=== PATIENT | male | born 1980 | race Hispanic/Latino ===

== ENCOUNTER 2018-02-25 08:25 | Emergency (ER) | payer OTHER ==
[~2018-02-25] VITALS: Ht 180.3 cm; Wt 107.5 kg
--- OUTSIDE RECORDS SUMMARY | 2018-02-25 08:28 | XMS REPORT | Clinical Summary ---
Author Author [facility] Address Unknown Phone Unavailable Care Team Providers Care Life Skills Specialist Name Role Phone Irvin Richards MD PCP Allergies Active Allergy Reactions Severity Noted Date Comments Valacyclovir 06/11/2016 Current Medications Prescription Sig. Disp. Refills Start End Date Status Date atorvastatin (LIPITOR) 20 06/04/20 Active MG tablet 16 lisinopril 06/04/20 Active (PRINIVIL,ZESTRIL) 20 MG 16 tablet Active Problems Not on file Family History Medical History Relation Name Comments No Known Problems Father No Known Problems Mother Relation Name Status Comments Father Alive Mother Alive Social History Tobacco Use Types Packs/Day Years Used Date Current Some Day Smoker Smokeless Tobacco: Never Used Tobacco Cessation: Ready to Quit: Yes; Counseling Given: Yes Alcohol Use Drinks/Week oz/Week Comments Yes occasional Sex Assigned at Date Recorded Not on file Last Filed Vital Signs Not on file Plan of Treatment Health Maintenance Due Date Last Done Comments INFLUENZA VACCINE 05/21/2018 Results Not on fileafter 02/24/2017 Insurance Payer Benefit Subscriber ID Type Phone Address Plan / Group HUMANA HUMANA xxxxxxxxx HMO HMO/POS/EP O/OPEN ACCESS
[2018-02-25] MEDS ORDERED: PROPARACAINE HCL 0.5% OP SOLN 15 ML BTL OP ONE (08:45)
[2018-02-25] MEDS ORDERED: HYDROCODONE/APAP 5MG-325MG TAB PO ONE (08:45)
[2018-02-25] MEDS ORDERED: CLONIDINE HCL 0.1 MG TAB PO ONE (08:45)
[2018-02-25] MEDS ORDERED: ERYTHROMYCIN (OPTH) 3.5 GM OINT OP SCH (09:00)
[2018-02-25] MEDS ORDERED: LABETALOL HCL 5 MG/ML 20ML VIAL IV STA (10:05)
[2018-02-25 10:54] VITALS: BP 173/99
== END 2018-02-25 11:08 | disposition home or self-care (01) ==
LOC: FSED 08:25
DX: H57.12 Ocular pain, left eye (principal); H10.022 Other mucopurulent conjunctivitis, left eye; Z87.891 Personal history of nicotine dependence
CPT/HCPCS: 99283; J3490

== ENCOUNTER 2020-07-07 17:11 | Emergency (ER) | payer OTHER ==
[~2020-07-07] VITALS: Ht 180.3 cm; Wt 107.5 kg
[2020-07-07] MEDS ORDERED: CLONIDINE HCL 0.2 MG TAB PO ONE (17:30)
--- NOTE | 2020-07-07 18:18 | NUR ---
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
[2020-07-07] MEDS ORDERED: CLONIDINE HCL 0.1 MG TAB ONE (18:26)
--- NOTE | 2020-07-07 18:59 | Emergency Department Note ---
History of Present Illnes History of Present Illness Chief Complaint: General Medicine Complaints History of Present Illness This is a 39 year old male Chief Complaint Comment ruq abd pain only hurts when he sits down. non radiating. no sob, denies cp, no n/v/d/f. pt states intermittant for months. pt states "it's my gallbladder. " pt denies any current medical hx. pt states he was once told he had htn, but states it went away. pt quit smoking 14 months ago. pt aaox4. ambulatory. bilateral bp: left arm 199/115 right arm 179/99 md to room for eval. . Historian: Patient Arrival Mode: Car Onset (how long ago): day(s) (5) Location: RUQ PAIN Quality: DULL Radiation: Denies non-radiation, Denies back, Denies neck, Denies extremity, Denies abdomen, Denies periumbilical, Denies flank, Denies proximal, Denies d istal, Denies other Severity: moderate Onset quality: gradual Duration (how long): day(s) (5) Timing of current episode: intermittent Progression: waxing and waning Context: Denies recent illness, Denies recent surgery, Denies recent immobilization, Denies recent travel, Denies trauma/injury, Denies new medications, Denies hx of DVT/PE, Denies non-compliance w/ medications, Denies other Relieving factors: none Exacerbating factors: none Associated symptoms: Denies denies other symptoms, Denies confusion, Denies chest pain, Denies cough, Denies diaphoresis, Denies fever/chills, Denies headaches, Denies loss of appetite, Denies malaise, Denies nausea/vomiting, Denies rash, Denies seizure, Denies shortness of breath, Denies syncope, Denies weakness, Denies other Treatments prior to arrival: none Past Medical/Family History Physician Review I have reviewed the patient's past medical and family history. Any updates have been documented here. Past Medical History Recent Fever: No Clinical Suspicion of Infectio: No New/Unexplained Change in Ment: No Past Medical History: Hypertension, Anxiety Other Medical History: quit smoking 2019 shingles Past Surgical History: None Social History Smoking Cessation: Former smoker Counseling Performed: No Alcohol Use: None Any Illegal Drug Use: No Physically hurt or threatened: No Other Last Tetanus: UTD Any Pre-Existing Lines (PICC,: No Review of Systems Review of Systems Constitutional: Reports no symptoms EENTM: Reports no symptoms Cardiovascular: Reports no symptoms Respiratory: Reports no symptoms Gastrointestinal: Reports as per HPI Genitourinary: Reports no symptoms Musculoskeletal: Reports no symptoms Integumentary: Reports no symptoms Neurological: Reports no symptoms Psychological: Reports no symptoms Endocrine: Reports no symptoms Hematological/Lymphatic: Reports no symptoms Physical Exam Related Data Allergies: Coded Allergies: valacyclovir (Verified Allergy, Unknown, 02/25/18) Triage Vital Signs Vital Signs Date Time Temp Pulse Resp B/P (MAP) Pulse Ox O2 Delivery O2 Flow Rate FiO2 07/07/20 17:11 99.2 95 16 179/99 98 Room Air Vital signs reviewed: Yes Physical Exam CONSTITUTIONAL Constitutional: Present well-developed, Present well-nourished HENT HENT: Present normocephalic, Present atraumatic, Present oropharynx clear/moist, Present nose normal HENT L/R: Present left ext ear normal, Present right ext ear normal EYES Eyes: Reports PERRL, Reports conjunctivae normal NECK Neck: Present ROM normal PULMONARY Pulmonary: Present effort normal, Present breath sounds normal CARDIOVASCULAR Cardiovascular: Present regular rhythm, Present heart sounds normal, Present capillary refill normal, Present normal rate GASTROINTESTINAL Abdominal: Present soft, Present bowel sounds normal, Present tender (RIGHT UPPER QUADRENT) GENITOURINARY Genitourinary: Present exam deferred SKIN Skin: Present warm, Present dry MUSCULOSKELETAL Musculoskeletal: Present ROM normal NEUROLOGICAL Neurological: Present alert, Present oriented x 3, Present no gross motor or sensory deficits PSYCHOLOGICAL Psychological: Present mood/affect normal, Present judgement normal Results Laboratory Lab results reviewed: Yes Imaging Imaging results reviewed: Yes Procedures 12 Lead ECG Interpretation ECG Interpretation : ECG: ECG 1 Date: Jul 07, 2020 Time: 17:18 Rhythm: sinus rhythm Rate: normal BPM: 78 QRS axis: normal ST segments normal: Yes T waves normal: Yes Clinical Impression: abnormal ECG Assessment & Plan Medical Decision Making MDM GALL STONES PUD Reassessment Reassessment BETTER Assessment & Plan Final Impression: (1) Hypertensive urgency (2) Abdominal pain, right upper quadrant Depart Disposition: HOME, SELF-CARE Last Vital Signs Date Time Temp Pulse Resp B/P (MAP) Pulse Ox O2 Delivery O2 Flow Rate FiO2 07/07/20 18:21 190/109 07/07/20 17:11 99.2 95 16 98 Room Air Medications in the ED Clonidine HCl 0.2 mg ONCE ONCE PO Last administered on 07/07/20at 18:21; Admin Dose 0.2 MG; Start 07/07/20 at 17:30; Stop 07/07/20 at 17:59; Status DC Clonidine HCl 0.2 mg STK-MED ONCE .ROUTE ; Start 07/07/20 at 18:26; Stop 07/07/20 at 18:22; Status DC SHARATH MYERS MD Jul 07, 2020 18:59
--- NOTE | 2020-07-07 18:59 | Diagnostic Imaging Report ---
EXAM: Right Upper Quadrant Ultrasound INDICATION: ^pain COMPARISON: None. TECHNIQUE: Transverse and longitudinal images of the right upper abdomen were obtained. FINDINGS: Liver: Size: 20 cm in the right midclavicular line, normal Appearance: Increased echogenicity, smooth contour Mass: No focal masses Gallbladder: Stones/Sludge: None Wall: 0.2 cm Appearance: No wall thickening, pericholecystic fluid or hydrops. Sonographic Mancilla's Sign: Negative Bile Ducts: Intrahepatic Ducts: No dilatation Extrahepatic Ducts: Common bile duct measures 0.4 cm, no dilatation Pancreas: Visualized portions of the pancreatic neck and proximal body are normal. Kidneys: Length: Right 11.5 cm Echogenicity: Normal Collecting System: No hydronephrosis Stone: None Cyst/Mass: None Vessels: Aorta: Visualized portions are normal Inferior Vena Cava: Visualized portions are normal Main Portal Vein: 1.0 cm, normal size with hepatopetal flow. Free Fluid: No ascites or pleural effusion IMPRESSION: 1. Hepatomegaly with diffuse fatty infiltration. No focal lesions. 2. No gallstones or sludge. Signed by: Dr. Clay Jacob M.D. on 07/07/2020 6:56 PM
[2020-07-07] MEDS ORDERED: PEPCID20 MG PO (19:00)
[2020-07-07] MEDS ORDERED: LISINOPRIL10 MG PO (19:00)
[2020-07-07] MEDS ORDERED: CYCLOBENZAPRINE5 MG PO (19:03)
--- OUTSIDE RECORDS SUMMARY | 2020-07-08 10:32 | XMS REPORT | Continuity of Care Document ---
Author Author [facility] t Organization [facility] Address [address] [place] [address] [place] [id number] Phone Unavailable Care Team Providers Care Hospital Coordinator Name Role Phone MD JERE (HANNAH) Erica PCP SHARATH MYERS Unavailable Payers Payer Name Policy Type Policy Number Effective Date Expiration Date Marquita Corrales Ppo [id number] 2019 00:00:00 [facility] Problems Condition Name Condition Details Condition Category Status Onset Date Resolution Date Last Treatment Date Treating Clinician Comments Source Hypertensive urgency Problem Active [facility] Right upper quadrant abdominal pain Problem Active [facility] Allergies, Adverse Reactions, Alerts Allergy Name Allergy Type Status Severity Reaction(s) Onset Date Inacti ve Date Treating Clinician Comments Source Valacyclovir Allergy to substance Active 2018-02-25 00:00:0 0 [facility] Social History Social Habit Start Date Stop Date Quantity Comments Source Sex Assigned At 1980 00:00:00 1980 00:00:00 Male [facility] Medications Ordered Medication Name Filled Medication Name Start Date Stop Da te Current Medication? Ordering Clinician Indication Dosage Frequency Signature (SIG) Comments Components Source Cyclobenzaprine Hcl (Flexeril) 5 Mg TABLET Cyclobenzap rine Hcl (Flexeril) 5 Mg TABLET 2020-07-07 19:03:00 Yes 10 Every 8 Hours as needed for Pain [facility] Lisinopril Lisinopril 2020-07-07 19:00:00 Yes 10 Roxanna ly [facility] Famotidine (Pepcid) 20 Mg TABLET Famotidine (Pepcid) 20 Mg T ABLET 2020-07-07 19:00:00 2020-07-07 00:00:00 No 20 Twice A Day [facility] Vital Signs Vital Name Observation Time Observation Value Comments Source Weight 2020-07-07 17:11:00 237 [lb_av] [facility] BMI (Body Mass Index) 2020-07-07 17:11:00 33.1 kg/m2 [facility] Procedures This patient has no known procedures. Plan of Care Planned Activity Planned Date Details Comments Source Instructions Abdominal Pain - Adult [facility] Encounters Start Date/Time End Date/Time Encounter Type Admission Type [facility] Care Department Encounter ID Source 2020-07-07 17:30:00 2020-07-07 19:20:00 Departed Emergency Room 1 SHARATH MYERS [facility] [id number] [facility] 2018-02-25 08:25:00 2018-02-25 11:08:00 Departed Emergency Room [facility] [id number] [facility] Results Test Description Test Time Test Comments Results Result Comments Source US ABDOMEN LIMITED-HOPD 2020-07-07 18:55:00 [facility] [address] [place] [address] Patient Name: FAISAL OQUENDO MR #: [id number] : 1980 Age/Sex: 39/M Req #: [id number] Adm Physician: Ordered by: SHARATH MYERS MD Report #: [id number] Location: [facility] Room/Bed: Procedure: [id number] HOPD/US ABDOMEN LIMITED-HOPD Exam Date: 07/07/20 Exam Time: 184 REPORT STATUS: Signed EXAM: Right Upper Quadrant Ultrasound INDICATION: pain COMPARISON: None. TECHNIQUE: Transverse and longitudinal images of the right upper abdomen were obtained. FINDINGS: Liver: Size: 20 cm in the right midclavicular line, normal Appearance: Increased echogenicity, smooth contour Mass: No focal masses Gallbladder: Stones/Sludge: None Wall: 0.2 cm Appearance: No wall thickening, pericholecystic fluid or hydrops. Sonographic Mancilla's Sign: Negative Bile Ducts: Intrahepatic Ducts: No dilatation Extrahepatic Ducts: Common bile duct measures 0.4 cm, no dilatation Pancreas: Visualized portions of the pancreatic neck and proximal body are normal. Kidneys: Length: Right 11.5 cm Echogenicity: Normal Collecting System: No hydronephrosis Stone: None Cyst/Mass: None Vessels: Aorta: Visualized portions are normal Inferior Vena Cava: Visualized portions are normal Main Portal Vein: 1.0 cm, normal size with hepatopetal flow. Free Fluid: No ascites or pleural effusion IMPRESSION: 1. Hepatomegaly with diffuse fatty infiltration. No focal lesions. 2. No gallstones or sludge. Signed by: Dr. Va Jacob M.D. on 07/07/2020 6:56 PM Dictated By: VA JACOB MD 55 Transcribed By: CARMEN on 07/07/201855 COPY TO: SHARATH MYERS MD
== END 2020-07-07 19:20 | disposition home or self-care (01) ==
LOC: FSED 17:30
DX: R10.11 Right upper quadrant pain (principal); I16.0 Hypertensive urgency; I10 Essential (primary) hypertension; F41.9 Anxiety disorder, unspecified; R94.31 Abnormal electrocardiogram [ECG] [EKG]
CPT/HCPCS: 76705; 80048; 80076; 84484; 85025; 93005; 99284